=== PATIENT | female | born 1985 | race Two or more races ===

== ENCOUNTER 2024-05-27 18:58 | Inpatient (IN) | payer OTHER ==
[~2024-05-27] VITALS: Ht 165.1 cm; Wt 74.8 kg
--- NOTE | 2024-05-27 19:16 | NUR ---
SE RECIBE PTE ALERTA Y ORIENTADA X3. REFIERE QUE VIENE POR REFERIDO DE DR SHALINI ELLIOTT PARA ADMISION POR DIVERTICULITIS. PTE REFIERE QUE PRESENTA DOLOR ABDOMINAL Y DIARREAS CON SARANYA
[2024-05-27] MEDS ORDERED: RINGERS SOLUTION,LACTATED 1,000 ML IV STA (20:42)
[2024-05-27] MEDS ORDERED: PROMETHAZINE HCL 50 MG/ML AMPUL IM STA (20:43)
[2024-05-27] MEDS ORDERED: MEPERIDINE HCL/PF 50 MG/ML VIAL IM STA (20:43)
[2024-05-27 21:33] LABS: INR 1.05; PARTIAL THROMBOPLASTIN TIME 28.8 SECONDS (22.0-34.0); PROTHROMBIN TIME 11.4 SECONDS (9.0-11.5)
[2024-05-27 21:38] LABS: ALBUMIN 3.6 gm/dL (3.4-5.0); BILIRUBIN TOTAL 0.52 mg/dL (0.3-1.2); CALCIUM 9.7 mg/dL (8.5-10.1); CREATININE SERUM 0.82 mg/dL (0.55-1.02); GFR 78.88; GLOBULINA 4.3 G/DL (2.4-3.5); POTASSIUM 3.38 mEq/L (3.5-5.1); TOTAL PROTEIN 7.9 gm/dL (6.4-8.2)
--- NOTE | 2024-05-27 21:38 | NUR ---
PACIENTE EVALUADO POR QUIEN [place] [facility], RN JAKOB EDUCA ACERCA DEL MISMO Y REFIERE ENTENDER. SE CANALIZA Y COLECTAN MUESTRAS DE LABORATORIO MEDIANTE MEDIDAS ASEPTICAS. SE ADMINISTRAN MEDICAMENTOS JENN ORDEN MEDICA.
[2024-05-27 21:55] LABS: HEMATOCRIT 37.5 % (36.0-45.00); HEMOGLOBIN 12.9 g/dL (12.0-15.00); MEAN CELL VOLUME 90.3 fL (80.00-100.00); MEAN CORPUSCULAR HEMOGLOBIN 30.9 pg (27.00-32.0); MEAN CORPUSCULAR HGB CONC 34.3 g/dl (32.0-36.0); PLATELET COUNT 202 K/uL (150-450); RED BLOOD COUNT 4.15 M/uL (4.00-6.00)
[2024-05-27 22:14] LABS: PH,URINE 5.5 (5.0-8.0); URINE APPEARANCE Cloudy; URINE BILIRRUBIN Negative (NEGATIVE); URINE BLOOD Negative; URINE COLOR Yellow; URINE GLUCOSE Negative (NEGATIVE); URINE KETONE Negative (NEGATIVE); URINE LEUKOCYTE Moderate; URINE NITRATE Negative; URINE PROTEIN Negative (NEGATIVE)
[2024-05-27 22:17] LABS: URINE BACTERIA 2157.6 uL (0.0-1933); URINE EPITHELIAL CELLS 51.9 uL (0.0-38.8); URINE RBC 28.4 uL (0.0-20.8); URINE WBC 155.4 uL (0.0-23.2)
[2024-05-27 22:41] LABS: URINE YEAST FEW /hpf
[2024-05-28] MEDS ORDERED: MORPHINE SULFATE 4 MG/ML VIAL IV STA (01:12)
[2024-05-28] MEDS ORDERED: METRONIDAZOLE/SODIUM CHLORIDE 500 MG/100 ML PIGGYBACK IV STA (01:13)
[2024-05-28] MEDS ORDERED: CIPROFLOXACIN IN 5 % DEXTROSE 400 MG/200 ML PIGGYBAG IV STA (01:13)
[2024-05-28] MEDS ORDERED: CIPROFLOXACIN IN 5 % DEXTROSE 400 MG/200 ML PIGGYBAG IV ONE (01:25)
[2024-05-28] MEDS ORDERED: METRONIDAZOLE/SODIUM CHLORIDE 500 MG/100 ML PIGGYBACK IV ONE (01:26)
[2024-05-28] MEDS ORDERED: MEPERIDINE HCL/PF 50 MG/ML VIAL IM STA (07:43)
[2024-05-28] MEDS ORDERED: PIPERACILLIN/TAZOBACTAM SODIUM 3.375 GM in 0.9 % SODIUM CHLORIDE 100 ML IV SCH (13:22)
[2024-05-28] MEDS ORDERED: ACETAMINOPHEN 500 MG GEL..CAP PO PRN (13:30)
[2024-05-28] MEDS ORDERED: MORPHINE SULFATE 4 MG/ML VIAL IV PRN (13:30)
[2024-05-28] MEDS ORDERED: DEXTROSE 5 %-0.45 % SOD CHLORD 1,000 ML IV SCH (13:45)
[2024-05-28] MEDS ORDERED: POTASSIUM CHLORIDE IN WATER 100 ML IV ONE (14:47)
[2024-05-28 16:10] LABS: AMYLASE 60 U/L (25-115); LIPASE 19 U/L (13-75)
[2024-05-28 17:39] VITALS: BP 130/80; O2SAT 100
[2024-05-28] MEDS ORDERED: MORPHINE SULFATE 4 MG/ML CARTRIDGE IV PRN (20:15)
[2024-05-28] MEDS ORDERED: FAMOTIDINE/PF 20 MG in 0.9 % SODIUM CHLORIDE 8 ML IV PUSH SCH (21:00)
[2024-05-28] MEDS ORDERED: MEPERIDINE HCL/PF 25 MG/ML VIAL IM PRN (21:30)
[2024-05-29 01:32] VITALS: BP 132/67; O2SAT 100
[2024-05-29 08:21] LABS: BILIRUBIN TOTAL 0.61 mg/dL (0.3-1.2); CALCIUM 8.8 mg/dL (8.5-10.1); CREATININE SERUM 0.94 mg/dL (0.55-1.02); GFR 67.38; GLOBULINA 3.2 G/DL (2.4-3.5); POTASSIUM 3.82 mEq/L (3.5-5.1); TOTAL PROTEIN 6.2 gm/dL (6.4-8.2)
[2024-05-29 12:25] VITALS: BP 132/76; O2SAT 81
[2024-05-29] MEDS ORDERED: METOCLOPRAMIDE HCL 5 MG/ML VIAL IV STA (12:32)
[2024-05-29] MEDS ORDERED: ONDANSETRON HCL 2 MG/ML VIAL IV PRN (12:45)
[2024-05-29 18:11] VITALS: BP 133/79; O2SAT 98
[2024-05-29] MEDS ORDERED: METOCLOPRAMIDE HCL 5 MG/ML VIAL IV SCH (21:00)
[2024-05-30 00:36] VITALS: BP 118/79; O2SAT 100
[2024-05-30 07:59] VITALS: BP 119/66; O2SAT 100
[2024-05-30 16:01] VITALS: BP 136/83; O2SAT 99
[2024-05-30 23:40] VITALS: BP 114/74; O2SAT 100
[2024-05-31 08:28] VITALS: BP 130/70; O2SAT 100
[2024-05-31] MEDS ORDERED: MORPHINE SULFATE 2 MG/ML CARTRIDGE IV PRN (12:30)
[2024-05-31 16:03] VITALS: BP 122/80; O2SAT 97
[2024-05-31] MEDS ORDERED: LACTOBACILLUS ACIDOPHILUS 1 CAP CAP PO SCH (17:00)
[2024-05-31 23:48] LABS: URINE APPEARANCE Clear; URINE BILIRRUBIN Negative (NEGATIVE); URINE BLOOD Negative; URINE COLOR Yellow; URINE GLUCOSE Negative (NEGATIVE); URINE KETONE Negative (NEGATIVE); URINE LEUKOCYTE Negative; URINE NITRATE Negative; URINE PROTEIN Negative (NEGATIVE); URINE UROBILINOGEN 0.2 E.U./dl
[2024-05-31 23:53] LABS: URINE EPITHELIAL CELLS 8.6 uL (0.0-38.8)
[2024-06-01 00:08] LABS: URINE BACTERIA 1.2 uL (0.0-1933); URINE WBC 1.4 uL (0.0-23.2)
[2024-06-01 00:30] VITALS: BP 119/83; O2SAT 100
[2024-06-01 08:07] LABS: HEMATOCRIT 34.7 % (36.0-45.00); MEAN CELL VOLUME 88.8 fL (80.00-100.00); MEAN CORPUSCULAR HEMOGLOBIN 30.8 pg (27.00-32.0); MEAN CORPUSCULAR HGB CONC 34.7 g/dl (32.0-36.0); PLATELET COUNT 205 K/uL (150-450); RED CELL DISTRIBUTION WIDTH 13.4 % (11.5-14.5)
[2024-06-01 08:52] VITALS: BP 126/85; O2SAT 96
[2024-06-01 09:11] LABS: ALBUMIN 3.1 gm/dL (3.4-5.0); BILIRUBIN TOTAL 0.66 mg/dL (0.3-1.2); CREATININE SERUM 0.99 mg/dL (0.55-1.02); GFR 63.47; GLOBULINA 3.3 G/DL (2.4-3.5); MAGNESIUM 1.9 mg/dL (1.8-2.4); PHOSPHOROUS 2.9 mg/dL (2.5-4.9); POTASSIUM 3.99 mEq/L (3.5-5.1); TOTAL PROTEIN 6.4 gm/dL (6.4-8.2)
[2024-06-01 09:15] LABS: C-REACTIVE PROTEIN 0.7 MG/DL (0.00-0.29)
[2024-06-01 16:30] VITALS: BP 143/85; O2SAT 95
[2024-06-01] MEDS ORDERED: LACTOBACILLUS ACIDOPHILUS 1 CAP CAP PO SCH (17:00)
[2024-06-01] MEDS ORDERED: 0.9 % SODIUM CHLORIDE 10 ML VIAL IJ ONE ×2 (17:27→20:06)
[2024-06-02] VITALS: BP 130/87; O2SAT 97
[2024-06-02 08:00] VITALS: BP 118/87; O2SAT 100
[2024-06-02 08:37] LABS: HEMATOCRIT 36.2 % (36.0-45.00); HEMOGLOBIN 12.4 g/dL (12.0-15.00); MEAN CELL VOLUME 89.1 fL (80.00-100.00); MEAN CORPUSCULAR HEMOGLOBIN 30.4 pg (27.00-32.0); MEAN CORPUSCULAR HGB CONC 34.1 g/dl (32.0-36.0); PLATELET COUNT 216 K/uL (150-450); RED BLOOD COUNT 4.06 M/uL (4.00-6.00); RED CELL DISTRIBUTION WIDTH 13.7 % (11.5-14.5)
[2024-06-02] MEDS ORDERED: ENOXAPARIN SODIUM 40 MG/0.4 ML SYRINGE SUBCUTANEO SCH (09:00)
== END 2024-06-02 15:14 | disposition home or self-care (01) | DRG 392 ==
LOC: ER 18:58 → SURG 05-28 16:22
PROVIDERS: General Practice; Internal Medicine Infectious Disease; ADMIT Student in an Organized Health Care Education/Training Program; ATTEND Student in an Organized Health Care Education/Training Program
PROC: BW21ZZZ Computerized Tomography (CT Scan) of Abdomen and Pelvis (ICD-10-PCS; principal; 2024-05-27)
PROC: BW4GZZZ Ultrasonography of Pelvic Region (ICD-10-PCS; 2024-06-01)
DX: K90.49 Malabsorption due to intolerance, not elsewhere classified (principal); K57.90 Diverticulosis of intestine, part unspecified, without perforation or abscess without bleeding; N83.201 Unspecified ovarian cyst, right side